=== PATIENT | male | born 1990 | race Hispanic/Latino ===

== ENCOUNTER 2017-12-12 14:26 | Emergency (ER) | payer OTHER, SELFPAY ==
[2017-12-12] MEDS ORDERED: Adacel (T-DAP) 0.5 ML VIAL ONE (14:40)
--- NOTE | 2017-12-12 15:15 | RAD ---
THREE VIEWS RIGHT FOOT: INDICATION: Right foot injury with pain. FINDINGS: There is no fracture or dislocation. Mild degenerative change of the 1st MTP joint with mild metatar mumtaz prima varus and hallux valgus seen. IMPRESSION: 1. No acute osseous abnormality. 2. 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 POS: [facility]
== END 2017-12-12 15:14 | disposition home or self-care (01) ==
LOC: ERS 14:26
DX: S91.331A Puncture wound without foreign body, right foot, initial encounter (principal); W22.8XXA Striking against or struck by other objects, initial encounter; Z23 Encounter for immunization
CPT/HCPCS: 90471; 90715